=== PATIENT | female | born 1990 | race Caucasian/White ===

== ENCOUNTER 2018-04-08 09:28 | Outpatient (CLI) | payer OTHER ==
[2018-04-08 10:14] LABS: ADD UMIC NO; UR ASCORBIC ACID NEGATIVE (NEGATIVE); UR BACTERIA FEW /HPF (NONE SEEN); UR BILIRUBIN (Dip) NEGATIVE (NEGATIVE); UR BLOOD (Dip) NEGATIVE (NEGATIVE); UR CLARITY SLIGHTLY CLOUDY (CLEAR); UR COLOR YELLOW (YELLOW); UR GLUCOSE (Dip) NEGATIVE (NEGATIVE); UR KETONES (Dip) NEGATIVE (NEGATIVE); UR LEUKOCYTE ESTERASE (Dip) NEGATIVE Leu/ul (NEGATIVE); UR MUCUS FEW /HPF (NONE SEEN); UR NITRITE (Dip) NEGATIVE (NEGATIVE); UR RBC 1 /HPF (0-5); UR SPECIFIC GRAVITY (Dip) 1.011 (1.003-1.030); UR SQUAMOUS EPITHELIAL CELL MODERATE /HPF (FEW); UR TOTAL PROTEIN (Dip) NEGATIVE (NEGATIVE); UR UROBILINOGEN (Dip) 2+ mg/dL (NEGATIVE); UR WBC 0 /HPF (0-5)
[2018-04-08 12:25] LABS: ADD MAN DIFF? NO
[2018-04-08 12:27] LABS: WHITE BLOOD COUNT 8.5 10^3/ul (4.8-10.8)
[2018-04-08 12:27] LABS: BASOPHILS % 0.5 % (0.0-2.0); EOSINOPHILS % 0.4 % (0.0-7.0); HEMATOCRIT 31.4 % (37.0-47.0); HEMOGLOBIN 10.5 g/dl (12.0-16.0); LYMPHOCYTES # 1.6 10^3/ul (0.8-2.9); LYMPHOCYTES % 19.1 % (15.0-51.0); MEAN CORPUSCULAR HEMOGLOBIN 29.3 pg (29.0-33.0); MEAN CORPUSCULAR HGB CONC 33.4 g/dl (32.0-37.0); MEAN CORPUSCULAR VOLUME 87.7 fl (82.0-101.0); MEAN PLATELET VOLUME 9.8 fl (7.4-10.4); MONOCYTE # 0.5 10^3/ul (0.3-0.9); MONOCYTES % 5.3 % (0.0-11.0); NEUTROPHIL # 6.3 10^3/ul (1.6-7.5); NEUTROPHILS % 74.2 % (39.0-77.0); PLATELET COUNT 266 10^3/UL (140-415); RED BLOOD COUNT 3.58 10^6/ul (4.20-5.40); RED CELL DISTRIBUTION WIDTH 14.9 % (11.5-14.5)
[2018-04-08 12:51] LABS: INR 0.97
[2018-04-08 12:52] LABS: PARTIAL THROMBOPLASTIN TIME 29.7 Sec (23.0-35.0)
== END 2018-04-08 13:45 | disposition home or self-care (01) ==
LOC: OBT 09:28 → L-D 09:28 → OBT 13:45
DX: O26.893 Other specified pregnancy related conditions, third trimester (principal); Z3A.35 35 weeks gestation of pregnancy; M54.9 Dorsalgia, unspecified
CPT/HCPCS: 76818; 81001; 81003; 85025; 85610; 85730; 87086

== ENCOUNTER 2018-05-10 12:17 | Inpatient (IN) | payer OTHER ==
[2018-05-10] MEDS: LACTATED RINGER'S 1,000 ML IV (18:29)
[2018-05-10] MEDS ORDERED: OXYTOCIN 30 UNITS/LR 500 ML IV ×2 (18:30)
[2018-05-10] MEDS ORDERED: METHYLERGONOVINE 0.2 MG INJ IM (18:30)
[2018-05-10] MEDS ORDERED: MISOPROSTOL 50 MCG CAPSULE VAG (18:30)
[2018-05-10] MEDS ORDERED: CARBOPROST 250 MCG INJ IM (18:30)
[2018-05-10] MEDS ORDERED: MISOPROSTOL 200 MCG TAB PR (18:30)
[2018-05-10] MEDS ORDERED: BUTORPHANOL 2 MG INJ IV (18:30)
[2018-05-10] MEDS ORDERED: LIDOCAINE 1% (MPF) 30 ML INJ INJ (18:30)
[2018-05-10 18:33] LABS: ADD MAN DIFF? NO
[2018-05-10 18:38] LABS: WHITE BLOOD COUNT 10.2 10^3/ul (4.8-10.8)
[2018-05-10 18:38] LABS: BASOPHILS % 0.4 % (0.0-2.0); EOSINOPHILS # 0.1 10^3/ul (0.0-0.5); EOSINOPHILS % 0.5 % (0.0-7.0); HEMATOCRIT 33.9 % (37.0-47.0); HEMOGLOBIN 11.6 g/dl (12.0-16.0); LYMPHOCYTES # 1.9 10^3/ul (0.8-2.9); LYMPHOCYTES % 18.7 % (15.0-51.0); MEAN CORPUSCULAR HEMOGLOBIN 29.4 pg (29.0-33.0); MEAN CORPUSCULAR HGB CONC 34.2 g/dl (32.0-37.0); MEAN PLATELET VOLUME 9.8 fl (7.4-10.4); MONOCYTE # 0.6 10^3/ul (0.3-0.9); MONOCYTES % 6.1 % (0.0-11.0); NEUTROPHIL # 7.6 10^3/ul (1.6-7.5); NEUTROPHILS % 73.9 % (39.0-77.0); PLATELET COUNT 288 10^3/UL (140-415); RED BLOOD COUNT 3.94 10^6/ul (4.20-5.40); RED CELL DISTRIBUTION WIDTH 15.1 % (11.5-14.5)
[2018-05-10] MEDS: MISOPROSTOL 50 MCG CAPSULE PO ×2 (18:52→22:55)
[2018-05-10 18:57] LABS: INR 0.93; PROTIME 12.6 Sec (11.9-14.9)
[2018-05-10 20:04] LABS: HEPATITIS B SURFACE ANTIGEN NEGATIVE (NEGATIVE)
[2018-05-11] MEDS: LACTATED RINGER'S 1,000 ML IV ×3 (01:15→03:13)
[2018-05-11] MEDS ORDERED: NALOXONE (0.4 MG/ML) INJ IV (02:30)
[2018-05-11] MEDS ORDERED: DIPHENHYDRAMINE 50 MG INJ IV (02:30)
[2018-05-11] MEDS ORDERED: ONDANSETRON 4 MG INJ IV (02:30)
[2018-05-11] MEDS: MISOPROSTOL 50 MCG CAPSULE PO ×3 (04:15→08:53)
[2018-05-11] MEDS: FENTAnyl 2MCG/ML-ROPIV 0.2% 100 ML BAG EPI (10:03)
[2018-05-11] MEDS: OXYTOCIN 30 UNITS/LR 500 ML IV ×2 (12:52→13:41)
[2018-05-11] MEDS: KETOROLAC 30 MG INJ IV (13:03)
[2018-05-11] MEDS: LACTATED RINGER'S 1,000 ML IV* ×2 (14:50→22:50)
[2018-05-11] MEDS ORDERED: DIBUCAINE 1% 30 GM OINT TOP (15:00)
[2018-05-11] MEDS ORDERED: OXYTOCIN 30 UNITS/LR 500 ML IV (15:00)
[2018-05-11] MEDS ORDERED: CARBOPROST 250 MCG INJ IM (15:00)
[2018-05-11] MEDS ORDERED: MISOPROSTOL 200 MCG TAB PR (15:00)
[2018-05-11] MEDS ORDERED: ZOLPIDEM 5 MG TAB PO (15:00)
[2018-05-11] MEDS ORDERED: HYDROCODONE/APAP (5/325) TAB PO ×2 (15:00)
[2018-05-11] MEDS ORDERED: METHYLERGONOVINE 0.2 MG INJ IM (15:00)
[2018-05-11 15:01] LABS: RAPID PLASMA REAGIN NONREACTIVE (NR)
[2018-05-11] MEDS: IBUPROFEN 600 MG TAB PO ×2 (18:03→23:38)
[2018-05-11] MEDS: CEPHALEXIN 500 MG CAP PO ×2 (18:03→23:38)
[2018-05-11] MEDS: WITCH HAZEL/GLYCERIN PAD PR (18:04)
[2018-05-11] MEDS: LANOLIN HPA 1 PKT TOP (18:04)
[2018-05-11] MEDS: BENZOCAINE 20% 56 ML SPRAY TOP (18:04)
[2018-05-11] MEDS: MAGNESIUM HYDROXIDE 30ML CUP PO (20:49)
[2018-05-11] MEDS: SENNA/DOCUSATE NA (8.6MG/50MG) TAB PO (20:49)
[2018-05-12] MEDS: IBUPROFEN 600 MG TAB PO ×3 (05:42→17:52)
[2018-05-12] MEDS: CEPHALEXIN 500 MG CAP PO ×3 (05:42→17:51)
[2018-05-12 08:01] LABS: ADD MAN DIFF? NO
[2018-05-12 08:05] LABS: WHITE BLOOD COUNT 11.6 10^3/ul (4.8-10.8)
[2018-05-12 08:05] LABS: BASOPHILS % 0.3 % (0.0-2.0); EOSINOPHILS % 0.3 % (0.0-7.0); HEMATOCRIT 31.5 % (37.0-47.0); HEMOGLOBIN 10.4 g/dl (12.0-16.0); LYMPHOCYTES % 17.1 % (15.0-51.0); MEAN CORPUSCULAR HEMOGLOBIN 29.7 pg (29.0-33.0); MEAN PLATELET VOLUME 10.2 fl (7.4-10.4); MONOCYTE # 0.8 10^3/ul (0.3-0.9); MONOCYTES % 6.7 % (0.0-11.0); NEUTROPHIL # 8.7 10^3/ul (1.6-7.5); PLATELET COUNT 240 10^3/UL (140-415); RED CELL DISTRIBUTION WIDTH 15.2 % (11.5-14.5)
[2018-05-12] MEDS: SENNA/DOCUSATE NA (8.6MG/50MG) TAB PO ×2 (08:29→21:59)
[2018-05-12] MEDS: MAGNESIUM HYDROXIDE 30ML CUP PO ×2 (08:29→21:59)
[2018-05-13] MEDS: IBUPROFEN 600 MG TAB PO ×3 (00:16→12:00)
[2018-05-13] MEDS: CEPHALEXIN 500 MG CAP PO ×3 (00:16→12:11)
[2018-05-13] MEDS: DIPHTH/TET/ACEL PERTUSS (ADULT) 0.5 ML VIAL IM* (09:26)
[2018-05-13] MEDS: MEASLES,MUMPS,RUBELLA VACCINE INJ SC* (09:26)
[2018-05-13] MEDS: VARICELLA VACCINE LIVE/PF 1,350 UNIT/0.5 ML ML SC* (09:27)
[2018-05-13] MEDS: SENNA/DOCUSATE NA (8.6MG/50MG) TAB PO (10:18)
[2018-05-13] MEDS: MAGNESIUM HYDROXIDE 30ML CUP PO (10:18)
== END 2018-05-13 14:40 | disposition home or self-care (01) | DRG 807 ==
LOC: OBT 12:17 → L-D 05-11 10:52 → PP1 05-11 15:30 → OBT 14:01 → L-D 14:11
PROVIDERS: Obstetrics & Gynecology
PROC: 10E0XZZ Delivery of Products of Conception, External Approach (ICD-10-PCS; principal; 2018-05-11)
DX: O69.81X0 Labor and delivery complicated by cord around neck, without compression, not applicable or unspecified (principal); Z37.0 Single live birth; Z3A.40 40 weeks gestation of pregnancy
CPT/HCPCS: 62319; 76815; 76818; 85025; 85610; 85730; 86592; 86850; 86900; 86901; 87340; 90716